=== PATIENT | male | born 1985 | race Caucasian/White ===

== ENCOUNTER 2019-05-31 08:38 | Emergency (ER) | payer BC ==
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
== END 2019-05-31 10:15 | disposition home or self-care (01) ==
LOC: ERS 08:38
DX: S01.81XA Laceration without foreign body of other part of head, initial encounter (principal); F17.220 Nicotine dependence, chewing tobacco, uncomplicated; V59.9XXA Occupant (driver) (passenger) of pick-up truck or van injured in unspecified traffic accident, initial encounter
CPT/HCPCS: 70450